=== PATIENT | male | born 1945 | race Caucasian/White ===

== ENCOUNTER 2018-10-12 21:32 | Emergency (ER) | payer MEDICAID, OTHER, SELFPAY ==
[~2018-10-12] VITALS: Ht 180.3 cm; Wt 82.0 kg
[2018-10-12] MEDS ORDERED: ASPI-515 PO (21:41)
--- NOTE | 2018-10-12 22:49 | NUR ---
PT BACK FROM CT SCAN. VSS. UPDATED ON POC.
[2018-10-12 23:26] VITALS: BP 108/58
== END 2018-10-12 23:28 | disposition home or self-care (01) ==
LOC: ED 22:22
DX: S06.0X0A Concussion without loss of consciousness, initial encounter (principal); F10.120 Alcohol abuse with intoxication, uncomplicated; Z72.9 Problem related to lifestyle, unspecified; Z91.14 Patient's other noncompliance with medication regimen; W01.0XXA Fall on same level from slipping, tripping and stumbling without subsequent striking against object, initial encounter; Y93.89 Activity, other specified; Y92.89 Other specified places as the place of occurrence of the external cause; Y99.8 Other external cause status; Y90.9 Presence of alcohol in blood, level not specified
CPT/HCPCS: 70450; 99284